=== PATIENT | female | born 1990 | race Two or more races ===

== ENCOUNTER 2018-01-04 19:39 | Emergency (ER) | payer OTHER ==
[2018-01-04] MEDS ORDERED: Amoxicillin/Clavulanate TAB* 875 MG PO ONE (20:41)
[2018-01-04] MEDS ORDERED: Ibuprofen TAB* 800 MG PO ONE (20:41)
--- NOTE | 2018-01-04 21:03 | ED ---
Willian Torres Jennifer, scribed for Nasir Oconnor on 01/04/18 at 2036 . Throat Pain/Nasal Congestion - HPI Summary HPI Summary: The patient is a 27 year old female who presents to the ED with right-sided ear pain coupled with nasal congestion and cough for about one week. The patient reports that her ear began to bleed 3-4 hours ago and rates the pain a 6/10. She said her ear popped and then began to feel better afterwards. The patient denies fever, sore throat. - History of Current Complaint Chief Complaint: EDUpperRespComplaint Time Seen by Provider: 01/04/18 20:24 Hx Obtained From: Patient Onset/Duration: Sudden Onset - 3-4 hours ago, Lasting Hours - 3-4 hours, Still Present Severity: Moderate Cough: Other: - Nasal congestion - Allergies/Home Medications Allergies/Adverse Reactions: Allergies Allergy/AdvReac Type Severity Reaction Status Date / Time No Known Allergies Allergy Verified 01/04/18 19:46 PMH/Surg Hx/FS Hx/Imm Hx Endocrine/Hematology History: Denies: Hx Diabetes Cardiovascular History: Denies: Hx Hypertension Infectious Disease History: No Infectious Disease History: Denies: Traveled Outside the [place] in Last 30 Days - Family History Known Family History: Positive: Diabetes - Father - Social History Alcohol Use: None Substance Use Type: Reports: None Smoking Status (MU): Never Smoked Tobacco Review of Systems Negative: Fever Positive: Ear Ache - Ear pain and ear bleed, Other - Nasal congestion. Negative : Sore Throat Positive: Cough All Other Systems Reviewed And Are Negative: Yes Physical Exam - Summary Physical Exam Summary: Appearance: Well appearing, no pain distress Skin: warm, dry, reflects adequate perfusion Head/face: normal Eyes: EOMI, RODNEY ENT: Right TM red, swollen, and perforated. Neck: supple, non-tender Respiratory: CTA, breath sounds present Cardiovascular: RRR, pulses symmetrical Abdomen: non-tender, soft Bowel: present Musculoskeletal: normal, strength/ROM intact Neuro: normal, sensory motor intact, A&Ox3 Triage Information Reviewed: Yes Vital Signs On Initial Exam: Initial Vitals Temp Pulse Resp BP Pulse Ox 98.5 F 16 16 136/82 100 01/04/18 19:44 01/04/18 19:44 01/04/18 19:44 01/04/18 19:44 01/04/18 19:44 Vital Signs Reviewed: Yes Diagnostics - Vital Signs Vital Signs Temp Pulse Resp BP Pulse Ox 01/04/18 19:44 98.5 F 16 16 136/82 100 - Laboratory Lab Statement: Any lab studies that have been ordered have been reviewed, and results considered in the medical decision making process. EENT Course/Dx - Course Assessment/Plan: The patient is a 27 year old female who presents to the ED with right-sided ear pain coupled with nasal congestion and cough for about one week. Her ear began to bleed 3-4 hours ago and then popped. In the ED course the patient is given Amoxicillin and Motrin. The patient is diagnosed with otitis media with perforation. The patient is instructed to follow up with an ENT physician. - Differential Diagnoses Differential Diagnoses: Otitis Externa, Otitis Media, Perforated TM - Diagnoses Provider Diagnoses: Acute otitis media with perforation Discharge - Discharge Plan Condition: Stable Disposition: HOME Prescriptions: Amoxicillin/Clavulanate TAB* [Augmentin TAB 875*] 875 mg PO BID #20 tab Ibuprofen TAB* [Motrin TAB* 600 MG] 600 mg PO Q8H PRN #21 tab MDD 3 PRN Reason: Pain Referrals: Jenifer Gordon MD [Primary Care Provider] - Segun Weber MD [Medical Doctor] - Latrell Ramirez MD [Medical Doctor] - Levon Ricci MD [Medical Doctor] - Additional Instructions: Follow up with an ENT physician as soon as possible. Return to the emergency department for any new or worsening symptoms. The documentation as recorded by the Willian levy Jennifer accurately reflects the service I personally performed and the decisions made by Anastasia velasco Emmanuel.
[2018-01-04 21:13] VITALS: BP 115/65
== END 2018-01-04 21:13 | disposition home or self-care (01) ==
LOC: ED 19:39
DX: H66.91 Otitis media, unspecified, right ear (principal); H72.91 Unspecified perforation of tympanic membrane, right ear
CPT/HCPCS: 99282; A9270-GY

== ENCOUNTER 2019-05-27 18:23 | Emergency (ER) | payer OTHER ==
--- NOTE | 2019-05-27 19:51 | ED ---
Headache - HPI Summary HPI Summary: Patient complains of headache, nausea 5 days with one episode of vomiting on the first day. Patient has history of headaches, states current headache consistent with prior headaches. Headache described as intermittent, improved with Tylenol and ibuprofen. Patient states nausea is not a common symptom with her via her headaches. Denies vision change, focal deficits, neck stiffness, fever, cough, sore throat, CP, SOB, D, abdominal pain, change in urine, change in BM, vaginal symptoms. Medical history is none. Abdominal surgical history is none. - History Of Current Complaint Chief Complaint: EDHeadache Stated Complaint: HEADACHE/ABD PAIN PER PT Time Seen by Provider: 05/27/19 19:50 Hx Obtained From: Patient Onset/Duration: Gradual Onset, Started days ago Currently Pain Is: Moderate Timing: Intermittent, Lasting: Character: Throbbing Location of Headache: Diffuse Aggravating Factor: Nothing Allevating Factors: Medication Associated Signs And Symptoms: Nausea - Allergies/Home Medications Allergies/Adverse Reactions: Allergies Allergy/AdvReac Type Severity Reaction Status Date / Time No Known Allergies Allergy Verified 05/27/19 18:29 PMH/Surg Hx/FS Hx/Imm Hx Endocrine/Hematology History: Denies: Hx Diabetes Cardiovascular History: Denies: Hx Hypertension History: Denies: Hx Dialysis Sensory History: Denies: Hx Deafness Opthamlomology History: Denies: Hx Legally Blind Neurological History: Denies: Hx Dementia Psychiatric History: Denies: Hx Autism Infectious Disease History: No Infectious Disease History: Denies: Traveled Outside the [place] in Last 30 Days - Family History Known Family History: Positive: Diabetes - Father - Social History Alcohol Use: None Substance Use Type: Reports: None Smoking Status (MU): Never Smoked Tobacco Review of Systems Constitutional: Negative Eyes: Negative ENT: Negative Cardiovascular: Negative Respiratory: Negative Positive: Nausea Genitourinary: Negative Musculoskeletal: Negative Skin: Negative Positive: Headache Psychological: Normal All Other Systems Reviewed And Are Negative: Yes Physical Exam - Summary Physical Exam Summary: Neuro exam normal. Abdomen soft nontender. Lung sounds clear to auscultation bilaterally. Full range of motion of neck and jaw. Triage Information Reviewed: Yes Vital Signs On Initial Exam: Initial Vitals Temp Pulse Resp BP Pulse Ox 97.9 F 52 14 104/78 99 05/27/19 18:26 05/27/19 18:26 05/27/19 18:26 05/27/19 18:26 05/27/19 18:26 Vital Signs Reviewed: Yes Appearance: Positive: Well-Appearing Skin: Positive: Warm Head/Face: Positive: Normal Head/Face Inspection Eyes: Positive: Normal ENT: Positive: Normal ENT inspection Neck: Positive: Supple Respiratory/Lung Sounds: Positive: Clear to Auscultation Cardiovascular: Positive: Normal Abdomen Description: Positive: Nontender Musculoskeletal: Positive: Normal Neurological: Positive: Normal Psychiatric: Positive: Normal AVPU Assessment: Alert - [place] Coma Scale Best Eye Response: 4 - Spontaneous Best Motor Response: 6 - Obeys Commands Best Verbal Response: 5 - Oriented Coma Scale Total: 15 Diagnostics - Vital Signs Vital Signs Temp Pulse Resp BP Pulse Ox 05/27/19 18:26 97.9 F 52 14 104/78 99 - Laboratory Result Diagrams: 05/27/19 20:26 05/27/19 20:26 Lab Statement: Any lab studies that have been ordered have been reviewed, and results considered in the medical decision making process. Headache Course/Dx - Course Course Of Treatment: Patient complains of headache, nausea 5 days with one episode of vomiting on the first day. Patient has history of headaches, states current headache consistent with prior headaches. Headache described as intermittent, improved with Tylenol and ibuprofen. Patient states nausea is not a common symptom with her via her headaches. Denies vision change, focal deficits, neck stiffness, fever, cough, sore throat, CP, SOB, D, abdominal pain , change in urine, change in BM, vaginal symptoms. Medical history is none. Abdominal surgical history is none. Patient bradycardic. states patient has history of same. Vital signs otherwise within normal limits. Labs within normal limits. Urine negative. Patient's symptoms improved with 1 L normal saline, migraine cocktail. Patient got cold after fluid administration with elevation in heart rate to mid 90s. After providing patient with blankets heart rate returned to normal and patient no longer felt cold. Patient states she is return to baseline no longer has active symptoms. Rx for Zofran. - Diagnoses Provider Diagnoses: Migraine, Nausea Discharge - Sign-Out/Discharge Documenting (check all that apply): Patient Departure Patient Received Moderate/Deep Sedation with Procedure: No - Discharge Plan Condition: Stable Disposition: HOME Prescriptions: Ondansetron ODT TAB* [Zofran 4 MG Odt TAB*] 4 mg PO Q8H PRN 4 Days #14 tab.odt PRN Reason: Nausea Patient Education Materials: Migraine Headache (ED), Acute Nausea and Vomiting (ED) Referrals: Michelle Stoner MD [Primary Care Provider] - Additional Instructions: Follow-up with primary care. Take Zofran for nausea as directed. Return to the ED for any new or worsening symptoms. - Billing Disposition and Condition Condition: STABLE Disposition: Home
[2019-05-27] MEDS ORDERED: diPHENhydraMINE IV* 50 MG/ML 1 ml VIAL (BENADRYL) IV ONE (20:03)
[2019-05-27] MEDS ORDERED: Metoclopramide IV* 5 MG/ML 2 ML VIAL IV ONE (20:03)
[2019-05-27] MEDS ORDERED: Ketorolac INJ* 30 MG/ML 1 ML VIAL IV ONE (20:03)
[2019-05-27] MEDS ORDERED: NS 0.9% 1000 ML** 1,000 ML IV ONE (20:03)
[2019-05-27 20:34] LABS: ABS Eosinophils 0.1 10^3/ul (0-0.6); ABS Lymphocytes 3.5 10^3/ul (1.0-4.8); ABS Monocytes 0.6 10^3/ul (0-0.8); ABS Neutrophils 4.3 10^3/ul (1.5-7.7); Hematocrit 41 % (35-47); Hemoglobin 14.1 g/dL (12.0-16.0); Lymphocyte % 40.8 %; Mean Corpuscular HGB Conc 34 g/dL (31-36); Mean Corpuscular Hemoglobin 29 pg (27-31); Mean Corpuscular Volume 84 fL (80-97); Mean Platelet Volume 8.6 fL (7.4-10.4); Nucleated Red Blood Cells % 0.1; Platelet Count 252 10^3/uL (150-450); Red Blood Count 4.89 10^6 /uL (3.70-4.87); Red Cell Distribution Width 14 % (10-15); White Blood Count 8.5 10^3/uL (3.5-10.8)
[2019-05-27 20:51] LABS: ALT 50 U/L (7-52); AST 46 U/L (13-39); Albumin 4.6 g/dL (3.2-5.2); Albumin/Globulin Ratio 1.4 (1-3); Alkaline Phosphatase 42 U/L (34-104); Anion Gap 5 mmol/L (2-11); BUN/Creatinine Ratio 8.4 (8-20); Blood Urea Nitrogen 8 mg/dL (6-24); C Reactive Protein < 1.00 mg/L (<8.01); CO2 Carbon Dioxide 27 mmol/L (22-32); Calcium 9.5 mg/dL (8.6-10.3); Chloride 104 mmol/L (101-111); EGFR Non-African American 71.1 (>60); Globulin 3.4 g/dL (2-4); Glucose 102 mg/dL (70-100); Potassium 4.2 mmol/L (3.5-5.0); Sodium 136 mmol/L (135-145)
[2019-05-27 20:57] LABS: HCG Pregnancy < 0.60 mIU/mL
[2019-05-27 22:23] LABS: Urine Appearance Clear; Urine Bilirubin Negative (Negative); Urine Blood Negative (Negative); Urine Color Straw; Urine Glucose Negative (Negative); Urine Ketones Negative (Negative); Urine Nitrite Negative (Negative); Urine Protein Negative (Negative); Urine Urobilinogen Negative (Negative)
[2019-05-27 22:38] VITALS: BP 118/75
== END 2019-05-27 22:37 | disposition home or self-care (01) ==
LOC: ED 18:23
DX: G43.909 Migraine, unspecified, not intractable, without status migrainosus (principal); R11.0 Nausea
CPT/HCPCS: 36415; 80053; 81003; 83690; 84702; 85025; 86140; 96361; 96374; 96375; 99282; J1200; J1885; J2765

== ENCOUNTER 2020-04-11 14:04 | Inpatient (IN) ==
[2020-04-11] MEDS ORDERED: Lactated Ringers 1000 ml BAG 1,000 ML IV ONE ×2 (15:18→20:34)
[2020-04-11] MEDS ORDERED: Lactated Ringers 1000 ml BAG 1,000 ML IV SCH (16:00)
[2020-04-11 16:42] LABS: ABS Lymphocytes 2.8 10^3/ul (1.0-4.8); ABS Monocytes 1.1 10^3/ul (0-0.8); Eosinophil % 0.4 %; Hematocrit 32 % (35-47); Hemoglobin 10.6 g/dL (12.0-16.0); Lymphocyte % 20.3 %; Mean Corpuscular HGB Conc 33 g/dL (31-36); Mean Corpuscular Hemoglobin 24 pg (27-31); Mean Corpuscular Volume 71 fL (80-97); Mean Platelet Volume 8.8 fL (7.4-10.4); Nucleated Red Blood Cells % 0.1; Platelet Count 221 10^3/uL (150-450); Red Blood Count 4.47 10^6 /uL (3.70-4.87); Red Cell Distribution Width 19 % (10-15); White Blood Count 13.6 10^3/uL (3.5-10.8)
[2020-04-11 16:59] LABS: Urine Benzodiazepine Screen None Detected (None Detect); Urine Opiates Screen None Detected (None Detect)
[2020-04-11] MEDS ORDERED: OBEPIDURAL 250 ML EPIDURAL ONE (19:34)
[2020-04-11] MEDS: Lactated Ringers 1000 ml BAG 1,000 ML IV SCH ×2 (20:22→21:12)
[2020-04-11] MEDS ORDERED: Sodium Citrate/Citric Acid LIQ 15 ML UDC PO PRN (20:34)
[2020-04-11] MEDS: Phenylephrine 40 mcg/mL 10mL (400mcg) SYRINGE IV PUSH PRN ×3 (20:49→20:58)
[2020-04-11] MEDS ORDERED: OBEPIDURAL 250 ML EPIDURAL SCH (21:00)
[2020-04-11] MEDS: EPHEDrine (Pressors) 50 MG/ML VIAL IV PUSH PRN ×2 (21:04→21:34)
[2020-04-12] MEDS: Lactated Ringers 1000 ml BAG 1,000 ML IV SCH (00:29)
[2020-04-12] MEDS ORDERED: Gentamicin ADULT per pharmacy 1 NOTE MISC FOLLOW UP PRN (02:24)
[2020-04-12] MEDS ORDERED: Morphine PF AMP (0.5MG/ML) 5 MG/10 ML AMP ONE (02:26)
[2020-04-12] MEDS: AMPICILLIN ADVAN IVPB SCH ×4 (02:43→21:02)
[2020-04-12] MEDS: NS 0.9% IVPB SCH ×5 (02:43→21:02)
[2020-04-12] MEDS ORDERED: Ondansetron 4 mg VIAL 2 MG/ML 2 ml VIAL IV PRN (03:33)
[2020-04-12] MEDS ORDERED: Naloxone 0.4 mg VIAL 0.4 mg/ml 1 ml VIAL IV PRN (03:33)
[2020-04-12] MEDS ORDERED: DiMENhydriNATE IV 50 mg/ml 1 ml VIAL IV PUSH PRN (03:33)
[2020-04-12] MEDS ORDERED: Methylergonovine 0.2 mg AMPULE 1 ml AMP ONE (03:48)
[2020-04-12] MEDS ORDERED: Witch Hazel PAD JAR TOPICAL PRN (04:10)
[2020-04-12] MEDS ORDERED: Dibucaine 1% OINT 28.35 GM TUBE PR PRN (04:10)
[2020-04-12] MEDS ORDERED: Glycerin ADULT 2.4 gm SUPP PR PRN (04:10)
[2020-04-12] MEDS ORDERED: Lactated Ringers 1000 ml BAG 1,000 ML IV SCH (05:00)
[2020-04-12] MEDS: Clindamycin 900 MG/D5W BAG(*) 900 MG/50 ML BAG IVPB SCH ×3 (05:21→21:59)
[2020-04-12] MEDS: GENTAMICIN ADULT IVPB SCH (10:56)
[2020-04-12] MEDS ORDERED: NS 0.9% 100 ml BAG 0 ML ONE (14:59)
[2020-04-12] MEDS ORDERED: NS 0.9% 100 ml BAG 100 ML ONE (15:10)
[2020-04-12] MEDS ORDERED: AMPICILLIN 1 GM ONE (15:10)
[2020-04-13] MEDS: NS 0.9% IVPB SCH ×3 (03:32→12:16)
[2020-04-13] MEDS: GENTAMICIN ADULT IVPB SCH (03:32)
[2020-04-13] MEDS: Clindamycin 900 MG/D5W BAG(*) 900 MG/50 ML BAG IVPB SCH ×2 (06:09→12:16)
[2020-04-13] MEDS: AMPICILLIN ADVAN IVPB SCH ×2 (06:09→12:16)
[2020-04-13 07:23] LABS: ABS Lymphocytes 2.8 10^3/ul (1.0-4.8); ABS Monocytes 1.1 10^3/ul (0-0.8); Eosinophil % 0.3 %; Hematocrit 21 % (35-47); Hemoglobin 6.9 g/dL (12.0-16.0); Lymphocyte % 16.4 %; Mean Corpuscular HGB Conc 33 g/dL (31-36); Mean Corpuscular Hemoglobin 23 pg (27-31); Mean Corpuscular Volume 70 fL (80-97); Mean Platelet Volume 8.5 fL (7.4-10.4); Platelet Count 201 10^3/uL (150-450); Red Blood Count 3.02 10^6 /uL (3.70-4.87); Red Cell Distribution Width 19 % (10-15); White Blood Count 17.1 10^3/uL (3.5-10.8)
[2020-04-14 08:42] VITALS: BP 98/61
== END 2020-04-14 12:55 | disposition home or self-care (01) | DRG 540 ==
LOC: MCHOBOUT 14:04 → MCHOB 15:16
PROVIDERS: ADMIT Obstetrics & Gynecology; ATTEND Obstetrics & Gynecology